=== PATIENT | male | born 1950 | race Two or more races ===

== ENCOUNTER 2025-06-07 05:55 | Emergency (ER) | payer OTHER ==
[~2025-06-07] VITALS: Ht 180.3 cm; Wt 95.3 kg
[2025-06-07] MEDS ORDERED: LIPITOR20 MG PO (06:34)
[2025-06-07] MEDS ORDERED: METFORMIN HCL500 M4 PO (06:34)
[2025-06-07] MEDS ORDERED: AMLODIPINE-OLM1 EAC2 PO (06:35)
[2025-06-07] MEDS ORDERED: METHYLPREDNISOLONE SOD SUCC 125 MG VIAL IV STA (07:15)
[2025-06-07] MEDS ORDERED: MAGNESIUM SULFATE IN WATER 50 ML IV ONE (07:30)
[2025-06-07] MEDS ORDERED: MAGNESIUM SULFATE 50% 1,000 MG/2 ML VIAL ONE (07:33)
[2025-06-07] MEDS ORDERED: WATER FOR INJ.,BACTERIOSTATIC 30 ML VIAL IJ ONE (07:33)
[2025-06-07] MEDS ORDERED: METHYLPREDNISOLONE SOD SUCC 125 MG VIAL ONE (07:33)
[2025-06-07] MEDS ORDERED: LEVALBUTEROL HCL 0.63 MG/3 ML SOLUTION IH ONE ×2 (07:37→08:04)
[2025-06-07 08:21] LABS: BASO % 0.3 % (0.1-1.2); EOS # 0.17 (0.04-0.54); EOS % 2.2 % (0.7-7.0); LYMPH # 1.51 (1.18-3.74); LYMPH % 19.5 % (19.3-53.1); MEAN PLATELET VOLUME 10.00 fl (9.4-12.4); MONO # 0.54 (0.24-0.82); MONO % 7.0 % (4.7-12.5); NEUT # 5.46 (1.56-6.13); NEUT % 70.5 % (34.0-71.1); RED CELL DISTRIBUTION WIDTH 13.2 % (11.6-14.4)
[2025-06-07] MEDS ORDERED: LEVALBUTEROL HCL 0.63 MG/3 ML SOLUTION IH SCH ×2 (08:30→09:00)
[2025-06-07 08:43] LABS: INR 1.05
[2025-06-07 08:59] LABS: ALT/SGPT 16.0 U/L (12-78); AST/SGOT 11.0 U/L (15-37); BILIRUBIN TOTAL 0.79 mg/dL (0.3-1.2); BUN CREA RATIO 13.0 (7.0-25.0); CREATININE SERUM 0.84 mg/dL (0.70-1.30); GFR 89.57; GLOBULINA 4.4 G/DL (2.4-3.5); GLUCOSE FASTING 130.0 mg/dL (65-100); OSMOLALITY SERUM 284.0 MOSM/KG (275-295)
[2025-06-07 09:30] LABS: COVID-19 AG NEGATIVE (NEGATIVE)
[2025-06-07] MEDS ORDERED: METHYLPREDNISOLONE SOD SUCC 40 MG VIAL IV STA (10:53)
[2025-06-07] MEDS ORDERED: IPRATROPIUM BROMIDE 0.5 MG/2.5 ML AMPUL.NEB IH SCH (11:00)
[2025-06-07] MEDS ORDERED: LEVALBUTEROL HCL 1.25 MG/3 ML SOLUTION IH SCH (11:00)
[2025-06-07] MEDS ORDERED: IPRATROPIU0.2 MG/1 M IH (14:25)
[2025-06-07] MEDS ORDERED: MUCINEX DM ER1 EACH PO (14:25)
[2025-06-07] MEDS ORDERED: LEVOFLOXACIN750 MG PO (14:25)
[2025-06-07] MEDS ORDERED: LEVALBUTER1.25 MG/3 IH (14:25)
== END 2025-06-07 14:45 | disposition home or self-care (01) ==
LOC: ER 05:56
PROVIDERS: General Practice
DX: R06.02 Shortness of breath (principal); R07.89 Other chest pain; J06.9 Acute upper respiratory infection, unspecified; I10 Essential (primary) hypertension; Z87.09 Personal history of other diseases of the respiratory system; Z20.822 Contact with and (suspected) exposure to COVID-19
CPT/HCPCS: 36415; 82803; 93005; 94640; 99284; J3475; J3490